=== PATIENT | female | born 1990 ===

== ENCOUNTER 2020-03-12 15:35 | Inpatient (IN) ==
[2020-03-12 13:57] LABS: Creatinine,Urine 249 mg/dL; Protein/Creatinine Ratio,Urine 0.15 mg/mg (0.00-0.20)
[2020-03-12 14:01] LABS: Basophils # 0.1 K/mcL (0.0-0.2); Basophils % 0.5 %; Eosinophils # 0.1 K/mcL (0.0-0.6); Eosinophils % 0.9 %; Hematocrit 41.9 % (35.3-44.9); Hemoglobin 13.3 g/dL (11.5-15.4); Immature Granulocytes % 1.3 % (0-4); Lymphocytes # 2.2 K/mcL (0.6-4.6); Lymphocytes % 21.1 %; Mean Corpuscular HGB Conc 31.7 g/dL (31.6-35.5); Mean Corpuscular Hemoglobin 26.1 pg (28.0-33.3); Mean Corpuscular Volume 82.3 fL (83.0-100.0); Mean Platelet Volume 12.6 fL (9.4-12.4); Monocytes # 0.6 K/mcL (0.0-1.3); Neutrophils # 7.4 K/mcL (1.6-8.9); Platelet Count 193 K/mcL (140-400); Red Blood Count 5.09 M/mcL (3.82-4.97); Red Cell Distribution Width 15.1 % (11.5-14.5); Segmented Neutrophils % 70.2 %; White Blood Count 10.6 K/mcL (4.3-11.1)
[2020-03-12 14:21] LABS: Alanine Aminotransferase 16 Units/L (7-52); Aspartate Amino Transferase 24 Units/L (13-39); BUN/Creatinine Ratio 17 (6-26); Blood Urea Nitrogen 9 mg/dL (6-20); Lactate Dehydrogenase 254 Units/L (140-271); Uric Acid 4.1 mg/dL (2.3-7.6); eGFR For African Americans > 60 (> 60); eGFR For Non-African Americans > 60 (> 60)
[2020-03-12 14:55] LABS: Amphetamine Screen,Urine Negative ng/mL (Cutoff=1000); Barbiturate Screen,Urine Negative ng/mL (Cutoff=200); Benzodiazepines Screen,Urine Negative ng/mL (Cutoff=200); Cannabinoid Screen,Urine Negative ng/mL (Cutoff = 50); Cocaine Screen,Urine Negative ng/mL (Cutoff= 300); Opiate Screen,Urine Negative ng/mL (Cutoff=300); Phencyclidine Screen,Urine Negative ng/mL (Cutoff=25)
[2020-03-12] MEDS ORDERED: Oxytocin 20 units/ LR 1000 mL 20 UNIT/1,000 ML BAG IVC SCH (16:15)
[2020-03-12] MEDS ORDERED: Ringers Solution, Lactated 1,000 ML ONE (16:20)
[2020-03-12] MEDS ORDERED: EPHEDrine 50 MG/ML VIAL IVP PRN (16:53)
[2020-03-12] MEDS ORDERED: Epidural Premix (fent/bupiv) 110 ML EP SCH (17:00)
[2020-03-12] MEDS ORDERED: Famotidine 20 MG/2 ML VIAL IVP PRN (17:37)
[2020-03-12] MEDS ORDERED: Naloxone 0.4 MG/ML INJ IVP PRN (17:37)
[2020-03-12] MEDS ORDERED: Penicillin G Potassium 5,000,000 UNIT in 0.9 % Sodium Chloride Mini Bag 100 ML IVPB ONE (17:37)
[2020-03-12] MEDS ORDERED: Metoclopramide 10 MG/2 ML VIAL IVP PRN (17:37)
[2020-03-12] MEDS ORDERED: *HR* FentaNYL (PF) 100 MCG/2 ML VIAL IVP PRN (17:37)
[2020-03-12] MEDS ORDERED: Ringers Solution, Lactated 1,000 ML IVC SCH (17:45)
[2020-03-12] MEDS ORDERED: Ropivacaine/PF 0.2% 20 ML VIAL ONE (21:13)
[2020-03-12] MEDS ORDERED: *HR* FentaNYL (PF) 100 MCG/2 ML VIAL ONE (21:13)
[2020-03-12] MEDS: Penicillin G Potassium 2,500,000 UNIT/105 ML MLS IVPB SCH (22:09)
[2020-03-13] MEDS: Penicillin G Potassium 2,500,000 UNIT/105 ML MLS IVPB SCH (01:16)
[2020-03-13] MEDS ORDERED: Ondansetron 4 MG/2 ML VIAL IVP ONE (01:36)
[2020-03-13] MEDS ORDERED: Benzocaine/Menthol 56 GM AEROSOL SPRAY TP PRN (02:36)
[2020-03-13] MEDS ORDERED: Oxytocin 20 units/ LR 1000 mL 20 UNIT/1,000 ML BAG IVC ONE (02:36)
[2020-03-13] MEDS ORDERED: Oxytocin 20 units/ LR 1000 mL 20 UNIT/1,000 ML BAG IVC SCH (02:36)
[2020-03-13] MEDS ORDERED: Measles/Mumps/Rubella Vacc 0.5 ML VIAL SQ PRN (02:36)
[2020-03-13] MEDS ORDERED: Rho Immune Globulin 1,500 UNIT SYRINGE IM PRN (02:36)
[2020-03-13] MEDS: Acetaminophen 325 MG TABLET PO PRN ×3 (04:40→23:49)
[2020-03-13 04:53] LABS: Basophils # 0.1 K/mcL (0.0-0.2); Basophils % 0.4 %; Eosinophils # 0.1 K/mcL (0.0-0.6); Eosinophils % 0.5 %; Hemoglobin 12.8 g/dL (11.5-15.4); Immature Granulocytes % 0.9 % (0-4); Lymphocytes # 2.5 K/mcL (0.6-4.6); Mean Corpuscular Volume 84.4 fL (83.0-100.0); Mean Platelet Volume 11.9 fL (9.4-12.4); Monocytes # 0.6 K/mcL (0.0-1.3); Monocytes % 4.6 %; Neutrophils # 10.4 K/mcL (1.6-8.9); Platelet Count 182 K/mcL (140-400); Red Blood Count 4.74 M/mcL (3.82-4.97); Red Cell Distribution Width 14.9 % (11.5-14.5); Segmented Neutrophils % 75.6 %; White Blood Count 13.8 K/mcL (4.3-11.1)
[2020-03-13] MEDS: Prenatal Vit/FA 1 EACH TABLET PO SCH (08:19)
[2020-03-13] MEDS ORDERED: Ondansetron ODT 4 MG TAB.RAPDIS SL PRN (14:49)
[2020-03-13] MEDS: FLUoxetine HCl 10 MG CAPSULE PO SCH (16:09)
[2020-03-13] MEDS: Ibuprofen 600 MG TABLET PO PRN (20:28)
[2020-03-14 00:04] VITALS: BP 121/74
[2020-03-14] MEDS: Ibuprofen 600 MG TABLET PO PRN (06:49)
[2020-03-14] MEDS: FLUoxetine HCl 10 MG CAPSULE PO SCH (08:17)
[2020-03-14] MEDS: Prenatal Vit/FA 1 EACH TABLET PO SCH (08:17)
[2020-03-14] MEDS: Acetaminophen 325 MG TABLET PO PRN (11:21)
== END 2020-03-14 12:45 | disposition home or self-care (01) | DRG 560 ==
LOC: 1NENULAB → 1NENUOBS 03-13 03:58
PROVIDERS: ADMIT Obstetrics & Gynecology; ATTEND Obstetrics & Gynecology